=== PATIENT | female | born 1980 | race Caucasian/White ===

== ENCOUNTER 2024-09-21 16:10 | Outpatient (OUT) | payer OTHER, SELFPAY ==
[2024-09-21 16:55] LABS: Basophils Percent Auto 0.5 % (0.2-2.0); Eosinophils Absolute Auto 0.2 10^3/uL (0.0-0.7); Eosinophils Percent Auto 2.1 % (0.9-7.0); Hematocrit 40.7 % (36.0-48.0); Hemoglobin 13.8 g/dL (12.0-16.0); Immature Granulocytes Abs Auto 0.03 10^3/uL (0.00-0.03); Immature Granulocytes Pct Auto 0.4 % (0.0-0.5); Lymphocytes Percent Auto 26.1 % (20.5-60.0); Mean Corpuscular HGB Conc 33.9 g/dL (29.9-35.2); Mean Corpuscular Hemoglobin 32.6 pg (26.7-34.0); Mean Corpuscular Volume 96.2 fL (81.0-99.0); Mean Platelet Volume 10.5 fL (9.5-13.5); Monocytes Absolute Auto 0.5 10^3/uL (0.3-0.8); Neutrophils Absolute Auto 4.8 10^3/uL (1.4-6.5); Neutrophils Percent Auto 63.9 % (43.0-75.0); Platelet Count 199 10^3/uL (150-450); Red Blood Count 4.23 10^6/uL (4.20-5.40); Red Cell Distribution Width 14.6 % (11.0-15.0); White Blood Count 7.6 10^3/uL (4.0-11.0)
[2024-09-21 17:14] LABS: Alanine Aminotransferase 72 U/L (14-59); Albumin Globulin Ratio 0.6; Albumin Level 2.7 g/dL (3.4-5.0); Alkaline Phosphatase 113 U/L (46-116); Anion Gap 11.2; Aspartate Amino Transferase 75 U/L (15-37); BUN Creatinine Ratio 14.8; Bilirubin Total 0.5 mg/dL (0.2-1.0); Calcium 8.7 mg/dL (8.5-10.1); Carbon Dioxide 25.6 mmol/L (21.0-32.0); Chloride 106 mmol/L (98-107); Estimated GFR (African America >60 (>=60 mL/min/1.73m^2); Estimated GFR (Non-African Ame >60 (>=60 mL/min/1.73m^2); Globulin 4.2 g/dL; Glucose 137 mg/dL (74-106); Potassium 3.8 mmol/L (3.5-5.1); Sodium 139 mmol/L (136-145); Total Protein 6.9 g/dL (6.4-8.2)
[2024-09-23 05:07] LABS: HBsAg Screen Negative (Negative); HIV Ab/p24 Ag Screen Non Reactive (Non Reactive); Hepatitis B Surf Ab Quant <3.5 mIU/mL (Immunity>10)
[2024-09-26 14:08] LABS: HCV Ab Reactive (Non Reactive)
== END 2024-09-21 16:11 | disposition home or self-care (01) ==
LOC: LAB 16:14
PROVIDERS: Visit Provider Nurse Practitioner Primary Care
DX: F19.90 Other psychoactive substance use, unspecified, uncomplicated (principal)
CPT/HCPCS: 36415; 80053; 85025; 86317; 86803; 87340; 87389

== ENCOUNTER 2024-10-06 13:02 | Outpatient (OUT) | payer OTHER, SELFPAY | END 2024-10-06 13:03 | disposition home or self-care (01) | LOC: LAB 13:03 | PROVIDERS: Visit Provider Nurse Practitioner Primary Care | DX: B18.2 Chronic viral hepatitis C (principal) | CPT/HCPCS: 36415; 87522 ==